=== PATIENT | female | born 1930 | race Caucasian/White ===

== ENCOUNTER 2016-11-05 20:55 | Observation (INO) | payer MEDICARE, BC ==
[2016-11-05] MEDS ORDERED: NITROGLYCERIN 0.4 MG TAB SL PRN (21:14)
[2016-11-05] MEDS ORDERED: NITROGLYCERIN 0.4 MG TAB SL ONE (21:21)
[2016-11-05] MEDS ORDERED: METOPROLOL TARTRATE 5 MG/5 ML SOL IV ONE ×2 (21:39→21:40)
[2016-11-05 21:40] LABS: BASOPHILS % (AUTO) 0 % (0-3); EOSINOPHILS % (AUTO) 2 % (0-9); HEMATOCRIT 38 % (35-47); MEAN CORPUSCULAR HGB CONC 33.5 gm/dl (32.0-36.0); MEAN CORPUSCULAR VOLUME 95 fL (81-99); MONOCYTES % (AUTO) 10.6 % (0-12)
[2016-11-05 21:58] LABS: ALBUMIN 3.7 gm/dl (3.4-5.0); ALT 26 IU/L (14-63); CALCIUM 8.9 mg/dl (8.5-10.1); GLOM FILT RATE 27 mL/min (>60); POTASSIUM 3.2 mMol/L (3.5-5.1); SODIUM 142 mMol/L (136-145)
[2016-11-05] MEDS ORDERED: FUROSEMIDE 40 MG SOL IV ONE (22:47)
[2016-11-05] MEDS ORDERED: FUROSEMIDE 40 MG SOL ONE (22:56)
[2016-11-05 23:08] LABS: APPEARANCE,URINE Clear; BILIRUBIN,URINE NEGATIVE (NEGATIVE); COLOR,URINE Yellow; GLUCOSE, URINE (UA) NEGATIVE (NEGATIVE); KETONES,URINE NEGATIVE (NEGATIVE); LEUKOCYTE ESTERASE ,URINE NEGATIVE (NEGATIVE); NITRATE,URINE NEGATIVE (NEGATIVE); OCCULT BLOOD,URINE 1+ (NEG-TRACE); UROBILINOGEN,URINE 0.2 (0.2-1.0 EU)
[2016-11-05] MEDS ORDERED: ZOLPIDEM TARTRATE 5 MG TAB PO PRN (23:15)
[2016-11-05] MEDS ORDERED: MORPHINE SULFATE 10 MG/ML SOL IV PRN (23:18)
[2016-11-05] MEDS ORDERED: PREDNISONE 20 MG TAB PO ONE (23:27)
[2016-11-05 23:40] LABS: RBC,URINE 0-2 (0-3AV/HPF)
[2016-11-06] MEDS: SODIUM CHLORIDE 0.9% FLUSH 10 ML SOL IV PRN ×2 (00:33→01:51)
[2016-11-06] MEDS ORDERED: PIPERACILLIN/TAZOBACT 3.375 GM 3.375 GM in SODIUM CHLORIDE 0.9% 100 ML 100 ML IV SCH (01:00)
[2016-11-06] MEDS ORDERED: PIPERACILLIN/TAZOBACT 3.375 GM PDS IV ONE ×3 (01:14→17:55)
[2016-11-06] MEDS ORDERED: SODIUM CHLORIDE 0.9% 100 ML 100 ML IV ONE ×3 (01:14→17:55)
[2016-11-06] MEDS ORDERED: POTASSIUM CHLORIDE 10 MEQ TER ONE ×2 (01:31→10:14)
[2016-11-06] MEDS: POTASSIUM CHLORIDE 10 MEQ CAPSULE PO SCH ×2 (01:40→12:42)
[2016-11-06] MEDS: TAZOBACT IV SCH ×3 (01:51→18:37)
[2016-11-06] MEDS: PIPERACILLIN IV SCH ×3 (01:51→18:37)
[2016-11-06] MEDS: SODIUM CHLORIDE 0.9% IV SCH ×3 (01:51→18:37)
[2016-11-06] MEDS: LORAZEPAM 0.5 MG TAB PO PRN ×2 (02:01→22:52)
[2016-11-06] MEDS ORDERED: ACETAMINOPHEN 325 MG PO ONE (02:47)
[2016-11-06] MEDS ORDERED: CYCLOBENZAPRINE HYDROCHLORID 5 MG TAB PO PRN (02:47)
[2016-11-06] MEDS ORDERED: CYCLOBENZAPRINE 10 MG TAB ONE (03:14)
[2016-11-06] MEDS ORDERED: CYCLOBENZAPRINE 10 MG TAB PO PRN ×2 (07:43→07:48)
[2016-11-06 08:56] LABS: BASOPHILS % (AUTO) 1 % (0-3); EOSINOPHILS % (AUTO) 1 % (0-9); HEMATOCRIT 37 % (35-47); MEAN CORPUSCULAR HGB CONC 34.6 gm/dl (32.0-36.0); MEAN CORPUSCULAR VOLUME 94 fL (81-99); MONOCYTES % (AUTO) 11.1 % (0-12); NEUTROPHILS % (AUTO) 74.9 % (37-80)
[2016-11-06] MEDS ORDERED: DORZOLAMIDE RIGHTEYE SCH (09:00)
[2016-11-06] MEDS ORDERED: CALCIUM CARBONATE PO SCH (09:00)
[2016-11-06] MEDS ORDERED: BRIMONIDINE 0.15% RIGHTEYE SCH (09:00)
[2016-11-06] MEDS ORDERED: CALCIUM CARBONATE 500 MG TAB PO SCH (09:00)
[2016-11-06] MEDS ORDERED: [UNRECOGNIZED DRUG - OTHER] PO SCH (09:00)
[2016-11-06] MEDS ORDERED: TIMOLOL RIGHTEYE SCH (09:00)
[2016-11-06 09:14] LABS: POTASSIUM 3.3 mMol/L (3.5-5.1)
[2016-11-06] MEDS: ACETAMINOPHEN 325 MG PO SCH ×4 (09:34→20:54)
[2016-11-06] MEDS: LOSARTAN POTASSIUM 50 MG TAB PO SCH ×2 (09:34→20:55)
[2016-11-06] MEDS: PREDNISONE 20 MG TAB PO SCH (09:34)
[2016-11-06] MEDS: MULTIVITAMIN2 1 EA TAB PO SCH (09:34)
[2016-11-06] MEDS: FUROSEMIDE 80 MG TAB PO SCH (09:34)
[2016-11-06] MEDS: POTASSIUM CHLORIDE 10 MEQ TER PO SCH ×2 (11:02→20:54)
[2016-11-06] MEDS: CALCIUM CARBONATE 500 MG TAB PO SCH (11:02)
[2016-11-06] MEDS: DILTIAZEM HCL 120 MG TABLET PO SCH ×2 (11:03→20:57)
[2016-11-06] MEDS: SOTALOL HYDROCHLORIDE PO SCH ×2 (11:03→20:59)
[2016-11-06] MEDS: BRIMONIDINE 0.15% RIGHTEYE SCH ×2 (11:23→20:56)
[2016-11-06] MEDS: DORZOLAMIDE/TIMOLOL 200 DROP SOL RIGHTEYE SCH ×2 (11:56→20:56)
[2016-11-06] MEDS: FUROSEMIDE 20 MG TAB PO SCH (12:20)
[2016-11-06] MEDS ORDERED: POTASSIUM CHLORIDE 10 MEQ TER PO ONE (12:45)
[2016-11-06] MEDS ORDERED: WARFARIN SODIUM 3 MG TAB PO ONE (12:50)
[2016-11-06] MEDS ORDERED: WARFARIN SODIUM 2 MG TAB PO SCH (18:00)
[2016-11-06 18:46] VITALS: PULSE 70
[2016-11-06] MEDS ORDERED: LATANOPROST 0.005% SOL RIGHTEYE SCH (21:00)
[2016-11-06] MEDS ORDERED: TRAZODONE HYDROCHLORIDE 50 MG TAB PO SCH (21:00)
[2016-11-06 21:03] VITALS: TEMP 97.9
[2016-11-07] MEDS ORDERED: PIPERACILLIN/TAZOBACT 3.375 GM PDS IV ONE ×2 (02:07→09:39)
[2016-11-07] MEDS ORDERED: SODIUM CHLORIDE 0.9% 100 ML 100 ML IV ONE ×2 (02:07→09:39)
[2016-11-07] MEDS: SODIUM CHLORIDE 0.9% FLUSH 10 ML SOL IV PRN (02:54)
[2016-11-07] MEDS: PIPERACILLIN IV SCH ×2 (02:54→10:36)
[2016-11-07] MEDS: TAZOBACT IV SCH ×2 (02:54→10:36)
[2016-11-07] MEDS: SODIUM CHLORIDE 0.9% IV SCH ×2 (02:54→10:36)
[2016-11-07 08:29] LABS: BASOPHILS % (AUTO) 0 % (0-3); EOSINOPHILS % (AUTO) 0 % (0-9); HEMATOCRIT 35 % (35-47); MEAN CORPUSCULAR HGB CONC 34.6 gm/dl (32.0-36.0); MEAN CORPUSCULAR VOLUME 94 fL (81-99); MONOCYTES % (AUTO) 7.3 % (0-12); NEUTROPHILS % (AUTO) 83.1 % (37-80)
[2016-11-07 08:46] LABS: GLOM FILT RATE 32 mL/min (>60); POTASSIUM 3.8 mMol/L (3.5-5.1); SODIUM 144 mMol/L (136-145)
[2016-11-07] MEDS: BRIMONIDINE 0.15% RIGHTEYE SCH (09:07)
[2016-11-07] MEDS: ACETAMINOPHEN 325 MG PO SCH ×2 (09:08→13:47)
[2016-11-07] MEDS: DILTIAZEM HCL 120 MG TABLET PO SCH (09:08)
[2016-11-07] MEDS: FUROSEMIDE 80 MG TAB PO SCH (09:09)
[2016-11-07] MEDS: SOTALOL HYDROCHLORIDE PO SCH (09:09)
[2016-11-07] MEDS: PREDNISONE 20 MG TAB PO SCH (09:25)
[2016-11-07] MEDS: MULTIVITAMIN2 1 EA TAB PO SCH (09:25)
[2016-11-07] MEDS: CALCIUM CARBONATE 500 MG TAB PO SCH (09:25)
[2016-11-07] MEDS: POTASSIUM CHLORIDE 10 MEQ TER PO SCH (09:25)
[2016-11-07] MEDS: DORZOLAMIDE/TIMOLOL 200 DROP SOL RIGHTEYE SCH (09:25)
[2016-11-07] MEDS: LOSARTAN POTASSIUM 50 MG TAB PO SCH (09:27)
[2016-11-07 10:51] VITALS: BP 132/72; RESP 20; O2SAT 96
[2016-11-07] MEDS: FUROSEMIDE 20 MG TAB PO SCH (12:32)
[2016-11-07] MEDS ORDERED: WARFARIN SODIUM 3 MG TAB PO SCH (18:00)
== END 2016-11-07 13:40 | disposition home or self-care (01) | DRG 292 ==
LOC: ED 20:55 → ACUTE CARE 22:53
PROVIDERS: ADMIT Emergency Medicine; ATTEND Emergency Medicine
DX: I50.9 Heart failure, unspecified (principal); J44.1 Chronic obstructive pulmonary disease with (acute) exacerbation; N17.9 Acute kidney failure, unspecified; R07.9 Chest pain, unspecified; N18.9 Chronic kidney disease, unspecified; E87.6 Hypokalemia; M47.892 Other spondylosis, cervical region; Z87.891 Personal history of nicotine dependence
CPT/HCPCS: 36415; 71010; 80048; 80053; 81001; 83735; 83880; 84484; 85025; 85610; 87040; 93005; 93012; 96374; 96375; 99218; 99225; 99284; 99285; J1940; J2270; J2543